=== PATIENT | male | born 1960 | race Caucasian/White ===

== ENCOUNTER 2021-03-03 18:52 | Inpatient (IN) | payer BC, SELFPAY ==
[2021-03-03] VITALS (9 sets, daily range): BP systolic 152–176; BP diastolic 74–116; PULSE 69–90; RESP 16–22; TEMP 37.1; O2SAT 97–98; BMI 35.4
--- NOTE | 2021-03-03 19:09 | XRR_ITS ---
PROCEDURE INFORMATION: Exam: XR Chest Exam date and time: 03/03/2021 7:09 PM Age: 60 years old Clinical indication: Pain; Chest pressure; Additional info: Cp TECHNIQUE: Imaging protocol: XR of the chest. Views: 1 view. COMPARISON: No relevant prior studies available. FINDINGS: Lungs: Unremarkable. No consolidation. Pleural spaces: Unremarkable. No pleural effusion. No pneumothorax. Heart/Mediastinum: Unremarkable. No cardiomegaly. Bones/joints: Unremarkable. XR/XR chest 1V portable [id number] IMPRESSION: No acute findings.
--- NOTE | 2021-03-03 19:09 | ECG_ITS ---
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 Measurements Intervals [place] Rate: 79 P: 37 DC: 144 QRS: -20 QRSD: 106 T: 85 QT: 359 QTc: 412 Interpretive Statements SINUS RHYTHM POSSIBLE RIGHT VENTRICULAR CONDUCTION DELAY [RSR (QR) IN V1/V2] ST elevation in the anterior leads, suggestive of recent anteroseptal infarction LEFT VENTRICULAR HYPERTROPHY AND ST-T CHANGE [VOLTAGE CRITERIA PLUS ST/T ABNORMALITY] No previous ECG available for comparison Electronically Signed On 03-04-2021 19:07:37 CDT by Austin Campbell M.D. [id number]
[2021-03-03 19:21] LABS: Basophils # 0.1 10^3/uL (0.0-0.1); Basophils % 0.5 %; Eosinophils # 0.2 10^3/uL (0.0-0.8); Eosinophils % 1.6 %; Hematocrit 46.2 % (42.0-52.0); Hemoglobin 15.3 g/dL (11.7-16.6); Lymphocytes # 1.4 10^3/uL (0.8-4.8); Lymphocytes % 11.7 %; Mean Corpuscular HGB Conc 33.1 g/dL (30.0-36.0); Mean Corpuscular Hemoglobin 29.1 pg (28.0-34.0); Mean Platelet Volume 9.8 fL (7.4-10.4); Monocytes # 1.2 10^3/uL (0.2-0.9); Monocytes % 9.8 %; Neutrophils # 9.29 10^3/uL (1.8-7.7); Nucleated Red Blood Cells % 0 %; Platelet Count 232 10^3/cmm (130-400); Red Blood Count 5.25 10^6/uL (4.1-5.3); White Blood Count 12.2 10^3/uL (4.0-10.0)
[2021-03-03 19:54] LABS: Alanine Aminotransferase 35 U/L (0-41); Albumin Level 4.5 g/dL (3.5-5.2); Alkaline Phosphatase 103 IU/L (40-130); Anion Gap 16.6 (5-19); Aspartate Amino Transferase 47 U/L (0-40); Blood Urea Nitrogen 11 mg/dL (8-23); Calcium 8.8 mg/dL (8.5-10.5); Carbon Dioxide 26 mmol/L (22-29); Chloride 101 mmol/L (98-107); Globulin 2.2 g/dL (1.3-4.6); Glomerular Filtration Rate 76.2 mL/min (90-130); Glucose 121 mg/dL (65-115); Lipase 44 U/L (13-60); NT Pro B Type Natriuretic Pept 815 pg/mL (0-125); Osmolality Calculated 291 mOsm/kg (285-295); Potassium 3.6 mmol/L (3.5-5.1); Sodium 140 mmol/L (136-145); Total Bilirubin 0.4 mg/dL (0.15-1.2); Total Protein 6.7 g/dL (6.6-8.7)
[2021-03-03 19:55] LABS: Troponin(5th) Baseline 803 ng/L (0-15)
--- NOTE | 2021-03-03 20:23 | PM.HP ---
Providers/Chief Complaint Chief Complaint: chest pain History of Present Illness Fly Ghotra is a 60 year old male known known past medical history other than hypertension, sleep apnea presented today with chief complaint of chest pain. 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 This pain was radiating towards his left arm which he is describing as numbness as well. He asked his son to take care of cattle and he went home to take some rest, all night his pain did not subside, he kept experiencing low intensity constant pain. Today in the morning he took care of his cattle despite that pain, today he was experiencing chest discomfort on deep breathing as well, and around 5 PM went to [facility], where EKG revealed significant changes, he was transferred to the ER via ambulance. In the ER STEMI alert was called, Dr. Choi was evaluating the patient when I went in to interview him. Patient is stating that his chest pain subsided after getting nitroglycerin by the EMS, he was hypertensive in the ER blood pressure 175/116 mmHg, troponin 803, EKG showing mild J-point elevation V2 V3, he will go for cardiac angiogram Review of Systems Const: Reports: fatigue; Denies: chills or body aches Eyes: Denies: change in vision ENMT: Denies: throat pain Card: Reports: chest pain and dyspnea on exertion Resp: Reports: dyspnea and pain on inspiration GI: Denies: abdominal pain : Denies: flank pain Musc: Denies: neck pain Skin/Breast: Denies: rash Neuro: Denies: headache(s) Psych: Reports: anxiety Endo: Denies: polyuria Guido/Lymph: Denies: easy bruising All/Imm: Denies: urticaria Medications/Allergies Allergies Allergy/AdvReac Type Severity Reaction Status Date / Time No Known Allergies Allergy Unverified 03/03/21 17:11 PFSH Acute PFSH: Medical History (Updated 03/03/21 @ 21:29 by Emir Burch MD) Hypertension Sleep apnea Surgical History (Updated 03/03/21 @ 21:29 by Emir Burch MD) H/O adenoidectomy Family History (Updated 03/03/21 @ 21:29 by Emir Burch MD) Denies family history of CAD (coronary artery disease) Family history of premature coronary artery disease Social History (Updated 03/03/21 @ 21:30 by Emir Burch MD) Smoking and tobacco status: current every day smoker smokeless tobacco Alcohol intake: current Alcohol intake frequency: holidays/special occasions only Substance/Drug Use: never Housing: House Vitals/I&O/Wt Last Vital Signs Temp 98.8 F 03/03/21 18:56 Pulse 90 03/03/21 19:09 Resp 22 H 03/03/21 19:09 BP 175/116 03/03/21 19:09 Pulse Ox 97 03/03/21 19:09 Weight last 48 hrs Weight 102.512 kg Physical Exam Narrative: EXAM NARRATIVE: Middle-age male, Morbidly obese Was sitting comfortably in his bed without active chest pain or shortness of breath Hypertension 170/95 mmHg Sun tanned S1, S2 no murmur appreciated no signs of heart failure Abdomen distended with obesity no acute tenderness Lower extremity no edema gangrene ulcer No sign of ischemia, gangrene or ulcer No joint swelling He is awake alert oriented x3 GCS 15 No active respiratory distress no audible wheezing or stridor EOMI, PERRLA Awake alert oriented x3 with appropriate mood and affect Data : 03/03/21 19:05 03/03/21 19:05 A&P Assessment and plan (1) STEMI (ST elevation myocardial infarction): Status: Acute (2) Hypertensive urgency: Status: Acute Additional A&P Information ST segment elevation [place] J-point elevation V2 V3, incomplete right bundle branch block Troponin 803, serial troponin and EKG STEMI alert called in the ER Patient is going for coronary angiogram Start dual antiplatelet therapy along high-dose statin lisinopril and Toprol Echo Check TSH, D-dimer For hypertension monitor on lisinopril and Toprol for now, might need hydrochlorothiazide at the time of discharge Appreciate cardiology recommendations DVT prophylaxis: Lovenox Cardiac diet after the procedure Full code Attestations Medical Necessity Statement*: Anticipating stay in the hospital cross more than 2 midnights, patient requires coronary angiogram for STEMI Time Spent in Patient Care: (>than 50% of time spent in counselling and/or direct pt care on unit). 40mins Coding Level of Care Code Acute Post Exchange Manager for Chg Fwd Diagnoses STEMI (ST elevation myocardial infarction) I21.3 Hypertensive urgency I16.0
[2021-03-03 21:01] LABS: Thyroid Stimulating Hormone 1.49 uIU/mL (0.27-4.20)
--- NOTE | 2021-03-03 21:07 | XACV_ITS ---
Ht: 173 cm Wt: 103 kg BSA: 2.26 m2 Gender: Male : 1960 Exam Priority: Routine Procedure(s): Procedure Description: Diagnostic procedure Procedure Description: Left Heart Catheterization Diagnostic Cath Status: Emergency Diagnostic Findings * Left Main has no disease. * Circumflex has no disease. * Mid Left Anterior Descending: total occlusion, EFREM: 0 flow. * Distal Right Coronary Artery: significant 80% stenosis, EFREM: 3 flow. * Coronary angiography shows right dominance. PCI Status: Emergency Interventional Findings * Mid Left Anterior Descendin% stenosis treated with a AB MINI TREK 1.50X6 RX BALLOON, AB MINI TREK 2.00X20 RX BALLOON, MDT R RAVEN 2.75X18 MIRIAM, and MDT MEGHA EUPHORA RX 3.23L53VN BALLOON. 0% residual stenosis, EFREM: 3 flow. * Distal Right Coronary Artery: 80% stenosis treated with a MDT R RAVEN 3.5X15 MIRIAM. 0% residual stenosis, EFREM: 3 flow. Conclusions 1. There is total occlusion coronary artery disease with two vessel disease. 2. Mid Left Anterior Descending was treated with a Balloon, Balloon, Drug Eluting Stent, and Balloon. 3. Distal Right Coronary Artery was treated with a Drug Eluting Stent. Recommendations * Continue current medical management and risk factor modification. Pressures Phase:Rest AO : 239 / 121 ( 118 ) @ 5:46:23 PM Clinical Evaluation EBL: 5mL-10mL Procedural Details Admit Source: Emergency department. Pre-Procedure Time Out. Identified patient by full name and date of as verbalized by the patient/guarantor. Does the consent match the physician's order: N/A Emergent. Accurate & Complete Informed Consent: N/A Emergent. Inpatient/Outpatient History & Physical on Chart: N/A Emergent. If H&P is completed, is and addenduem needed: N/A Emergent; If yes, is the addendum complete: N/A Emergent. Visualize and Verify Site with Patient/Guarantor: N/A. Relevant Radiology Images available: N/A Emergent. Pre-op teaching completed and patient verbalized understanding. The risks, benefits, and alternatives of sedation and/or procedure were discussed by physician. The patient agrees to continue. Physician arrived. Procedure started. IV Site on Arrival: 20 gauge in the left anticubital. Oxygen started at 2liters/min via nasal canula. right radial was prepped with chloroprep then draped in the usual sterile fashion. bilateral groins was prepped with chloroprep then draped in the usual sterile fashion. Physician notified. IV Site on Arrival: 18 gauge in the right anticubital. Baseline sample Acquired. HR: 79 BPM. Physician scrubbed in. Immediate Pre-Procedure Time Out. Correct Patient: N/A Emergent; Correct Procedure: N/A Emergent; Correct Site: N/A Emergent; Correct Patient Position: N/A Emergent; Correct Supplies: N/A Emergent; Dried Flammable Prep: N/A Emergent; Blood Products Available: N/A Emergent;. ER called and reported 2nd trop 1001 and 2nd delta was 198, informed center medical and lab director team of critical labs, no new orders at this time. Lidocaine 1% infiltrated to the right radial. Arterial access obtained. A 5 cypriot JR4 catheter in over wire. Inventory is Questetragar XT .014 190cm Str. Guidewire. JR4 removed. Catheter out. TR band placed on right wrist. Hemostasis obtained. Going to right groin. A TR Band was successful obtaining hemostatsis at the Right Radial artery insertion site. Lidocaine 1% infiltrated to the right groin. Arterial access obtained with micropuncture set. A 6 cypriot JR4 catheter in over wire. Catheter out. Inventory is CRD 6 FR XB 3.5 GUIDE. Multiple views taken of right coronary artery. [place] guidewire was advanced through the guide catheter to lesion in the diaganol. Inventory is TR 180cm Runthrough NS extra floppy 0.014 wire into LAD. House sup called to updated patient's daughter. Inflation number : 1 A AB MINI TREK 1.50X6 RX BALLOON was prepped and advanced across the Mid LAD , then inflated to 8 SULMA for 0:18 seconds. Balloon out. Balloon inserted to lesion in the mid LAD. Inflation number : 2 A AB MINI TREK 2.00X20 RX BALLOON was prepped and advanced across the Mid LAD , then inflated to 18 SULMA for 0:15 seconds. Balloon out. cougar wire removed from diag. Inflation Number : 3 A MDT R RAVEN 2.75X18 MIRIAM -Lot Number# [id number] Exp Date: 11/07/2022 was prepped and advanced across the Mid LAD. The stent was deployed at 14 SULMA for 0:16 seconds. Stent balloon removed. Inflation number : 4 A MDT NC EUPHORA RX 3.85V81LV BALLOON was prepped and advanced across the Mid LAD , then inflated to 14 SULMA for 0:14 seconds. Inflation number: 5 The MDT NC EUPHORA RX 3.92M63NP BALLOON was reinflated across the Mid LAD, to 14 SULMA for 0:13 seconds. Balloon out. Stent balloon and wire out. XB3.5 wire removed. Inventory is CRD 6FR JR 4 GUIDE 100cm. 6 cypriot JR 4 guide catheter was inserted over the wire. Drawing ACT. [place] guidewire was advanced through the guide catheter to lesion in the mid RCA. Inflation Number : 1 A MDT R RAVEN 3.5X15 MIRIAM -Lot Number# [id number] Exp Date: 09/19/2022 was prepped and advanced across the Mid RCA. The stent was deployed at 18 SULMA for 0:36 seconds. ACT 236. Stent balloon out over wire. Checking results. Stent balloon and wire out. Guide wire out. ACT drawn. Results 236 seconds. Therapeutic limits - pre-heparin administration 90-150 seconds and monitoring heparin during a vascular procedure >250 seconds. Sheath(s) sutured into position with 2-0 silk and sterile 4x4's and Op-site applied over the site. No oozing or signs and symptoms of hematoma noted. Arterial sheath flushed and connected to tranducer and pressure bag with heparinized saline. Post Procedure: Pulses reassessed and unchanged. Physician scrubbed out. A Suture was successful obtaining hemostatsis at the Right Femoral artery insertion site. PERRLA. Strong, equal hand urology nurse bilaterally. Medication's Wasted: Nitro = 49.8 mL. Medication's Wasted: Heparin = 1000 units. [facility] Clinical Fraility Score: 3: Managing Well. Assessment Rn Indications: ACS > 24 hours. Chest Pain Symptom Assessment: Typical Angina Symptoms. Cardiovascular Instability: Yes, consistent chest pain. Current diagnosis: STEMI. Total IV fluids: 89 mL. PCI Indication: STEMI. Post-op diagnosis: STEMI. Complications: N/A. Estimated blood loss: 5mL-10mL. Procedure completed. Patient transferred by bed to 1st floor. Vital chart was stopped. Access Site Site: Right Radial artery Sheath Size: 5 Fr Hemostasis Method: TR Band Hemostasis Success: Successful Site: Right Femoral artery Sheath Size: 6 Fr Hemostasis Method: Suture Hemostasis Success: Successful Procedure Medications Start: 9:29 PM Stop: 9:29 PM Medication: Versed Amount: 1 mg Route: I.V. Start: 9:29 PM Stop: 9:29 PM Medication: Fentanyl Amount: 50 mcg Route: I.V. Start: 9:34 PM Stop: 9:34 PM Medication: Versed Amount: 1 mg Route: I.V. Start: 9:34 PM Stop: 9:34 PM Medication: Fentanyl Amount: 50 mcg Route: I.V. Start: 9:45 PM Stop: 9:45 PM Medication: Versed Amount: 1 mg Route: I.V. Start: 9:45 PM Stop: 9:45 PM Medication: Fentanyl Amount: 50 mcg Route: I.V. Start: 9:56 PM Stop: 9:56 PM Medication: Heparin Amount: 6000 units Route: I.V. Start: 9:59 PM Stop: 9:59 PM Medication: Aggrastat 12.5 mg/250 mL Amount: 50 ml Route: I.V. bolus Start: 10:00 PM Stop: 10:00 PM Medication: Aggrastat 12.5 mg/250 mL Amount: 18.4 ml/hr Route: I.V. drip Start: 10:03 PM Stop: 10:03 PM Medication: Versed Amount: 1 mg Route: I.V. Start: 10:03 PM Stop: 10:03 PM Medication: Fentanyl Amount: 50 mcg Route: I.V. Start: 10:16 PM Stop: 10:16 PM Medication: Nitrogylcerin Amount: 200 mcg Route: I.C. Start: 10:32 PM Stop: 10:32 PM Medication: Heparin Amount: 2000 units Route: I.V. I, the attending physician, have reviewed and verified all procedure medications. Yes, all medications given per verbal order History/Risk Factors Hypertension: No Dyslipidemia: No Peripheral Arterial Disease (PAD): No Myocardial Infarction ([place]): No Obesity: No Renal Disease: No Prior Interventions PCI: No CABG: No Valve Surgery: No Report Signatures Finalized by Emir Cardenas MD on 03/18/2021 04:55 PM
--- NOTE | 2021-03-03 21:09 | ECG_ITS ---
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 Measurements Intervals [place] Rate: 91 P: 32 NE: 162 QRS: -25 QRSD: 98 T: 76 QT: 337 QTc: 417 Interpretive Statements SINUS RHYTHM BORDERLINE LEFT AXIS DEVIATION [QRS AXIS < -20] ST elevation, consistent with a recent anteroseptal myocardial infarction POSSIBLE RIGHT VENTRICULAR CONDUCTION DELAY [RSR (QR) IN V1/V2] MODERATE VOLTAGE CRITERIA FOR LVH, CONSIDER NORMAL VARIANT [MEETS CRITERIA IN ONE OF: R(aVL), S(V1), R(V5), R(V5/V6)+S(V1)] NONSPECIFIC ST & T-WAVE ABNORMALITY WARNING: DATA QUALITY MAY AFFECT INTERPRETATION INTERPRETATION BASED ON A DEFAULT AGE OF 40 YEARS No previous ECG available for comparison Electronically Signed On 03-04-2021 19:15:51 CDT by Austin Campbell M.D. [id number]
[2021-03-03 21:30] LABS: Troponin 5 2HR 1001 ng/L (0-15); Troponin 5 2HR Delta 198 ABS# (0-10)
[2021-03-03 22:02] LABS: Chol HDL Ratio 4.82 mg/dL (1.0-5.00); Cholesterol 188 mg/dL (0-200); HDL Cholesterol 39 mg/dL (60-100); LDL Cholesterol Calculated 115 mg/dL (50-129); LDL HDL Ratio 2.95 RATIO (0.00-3.22); Triglycerides 171 mg/dL (0-150)
[2021-03-03 22:03] LABS: Estmated Average Glucose 126
--- NOTE | 2021-03-03 23:07 | PC.NURSE ---
Patient received from slab depiler operator at 2255 s/p [facility] with PCIx2. Patient had aggrastat running at that time which was d/c'd now per Dr Cardenas. Patient TR band in place to right wrist and sheath sutured in place with pressure bag attached to right groin. No s/s of bleeding or hematoma formation observed to either site. Instructed patient on site care and restrictions, new medications to include Brilinta, metoprolol and statins. Patient and daughter both verbalized complete understanding. Daughter to bring patient's medications and cpap tomorrow morning. PTT ordered for 0048. Waiting for this result to removed sheath. Explained to patient the process of sheath removal. Patient verbalized understanding.
--- NOTE | 2021-03-03 23:31 | PC.NURSE ---
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 Dr Ronald iyer.
[2021-03-03] MEDS: metoprolol succinate ER (24 HR) 25 mg Tablet PO (23:36)
[2021-03-04] VITALS (34 sets, daily range): BP systolic 123–183; BP diastolic 64–109; PULSE 64–88; RESP 8–22; TEMP 36.6–36.8; O2SAT 93–98
--- NOTE | 2021-03-04 00:20 | W.ED.CHESTPA ---
HPI - Chest Pain General: Chief Complaint: Chest Pain Stated Complaint: chest pain Time Seen by Provider: 03/03/21 19:03 Source: patient and family (daughter) Mode of arrival: EMS Limitations: no limitations History of Present Illness: HPI narrative: Patient is a 60-year-old male with no prior cardiac history and who presents to the emergency department with chest pain that started yesterday. 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 Pain never completely went away. Now he says it is more of an ache and rates it about a 4 out of 10. Pain is substernal with no radiation at this time. No nausea or vomiting. No diaphoresis at this time. No dizziness. He was unwilling to come to the hospital but his daughter was able to convince him to come in for evaluation. He describes it as feeling like something is sitting on his chest. complaint: chest pain Onset (ago): day(s) (1) Timing of current episode: constant Prior episodes: No Onset: during exertion Pain location: substernal Pain radiation: none Quality: heaviness Relieving factors: nitroglycerin Exacerbating factors: exertion Associated symptoms: Deny abdominal pain, diaphoresis, dyspnea, fever(s), leg edema, nausea, palpitations, sense of impending doom, syncope or vomiting Review of Systems General: Reports: 10 or more systems reviewed and unremarkable except in HPI and below Const: Denies: fever(s) or diaphoresis Card: Denies: palpitations or syncope Resp: Denies: dyspnea GI: Denies: abdominal pain, nausea or vomiting PFS ED PFSH: Medical History (Updated 03/04/21 @ 11:49 by Jd Prajapati MD, [facility] [place]) Hypertension Sleep apnea Surgical History (Updated 03/03/21 @ 21:29 by Emir Burch MD) H/O adenoidectomy Family History (Updated 03/03/21 @ 21:29 by Emir Burch MD) Denies family history of CAD (coronary artery disease) Family history of premature coronary artery disease Social History (Updated 03/03/21 @ 21:30 by Emir Burch MD) Smoking and tobacco status: current every day smoker smokeless tobacco Alcohol intake: current Alcohol intake frequency: holidays/special occasions only Substance/Drug Use: never Housing: House Physical Exam Const: COMMON NORMALS: no acute distress, average body habitus, patient oriented x3, no limitations, healthy appearing, alert and well nourished HENMT: COMMON NORMALS: normocephalic, atraumatic and moist oral mucous membranes HEAD & SCALP: normocephalic and atraumatic Neck/C-Spine: COMMON NORMALS: no meningeal signs and no JVD Chest: COMMONS NORMALS: normal inspection of the chest and normal palpation of entire chest wall Resp: COMMON NORMALS: normal respiratory effort, No retractions, No use of accessory muscles, clear to auscultation bilaterally and percussion normal AUSCULTATION: clear to auscultation bilaterally PERCUSSION: percussion normal Cardio: COMMON NORMALS: no JVD, regular rate, regular rhythm, S1 normal heart sound present, S2 normal heart sound present, No gallops present (Cardio), No clicks present (Cardio), No murmurs present (Cardio), No rub (Cardio) and Peripheral pulses 2+ throughout RATE: regular rate RHYTHM: regular rhythm HEART SOUNDS: S1 normal heart sound present and S2 normal heart sound present PERIPHERAL PULSES: Peripheral pulses 2+ throughout GI: COMMON NORMALS: Normal to inspection, nondistended, normoactive bowel sounds present, Soft to palpation, non-tender, No hepatosplenomegaly present, no masses and no bruits PALPATION: Yes Soft to palpation and Yes No hepatosplenomegaly present Extremity: COMMON NORMALS: normal to inspection, full ROM, capillary refill normal, no calf tenderness and no pedal edema Neuro: COMMON NORMALS: patient oriented x3 SENSORIUM/ORIENTATION: Yes alert MENINGEAL SIGNS: Yes no meningeal signs Skin: COMMON NORMALS: no rashes or lesions noted, no wounds, turgor normal, no jaundice, no petechiae and no mottling GENERAL SKIN EXAM: no rashes or lesions noted and turgor normal Course Consultations: Consultation #1: Discussed the patient with Dr. Burch hospitalist and he kindly accepted the patient to his service. Time: 20:20 Consultation #2: Discussed the patient with Dr. Campbell and he advised that the patient be taken to the labor employment associate for an angiogram since he still has some pain. Time: 20:30 Vital Signs: Vital signs: Vital Signs Temperature 98.8 F 03/03/21 18:56 Pulse Rate 66 03/04/21 11:09 Respiratory Rate 14 03/04/21 11:09 Blood Pressure 126/64 03/04/21 06:15 Pulse Oximetry 94 03/04/21 11:09 MDM - Chest Pain MDM Narrative: Medical decision making narrative: 60 year old male who presents to the ED with complaints of chest pain that started yesterday. Pain has improved but never resolved and in the ED his EKG showed possible GRACIELA in V2 and with an initial troponin of 803, a decision was made to take the patient to the labor employment associate for a PCI. He remained stable in the ED. Medical Records: Attestation: I reviewed the patient's medical records. Lab Data: Attestation: I reviewed the patient's lab results. Labs: Lab Results 03/03/21 03/03/21 03/03/21 Range/Units 19:05 19:05 19:05 WBC 12.2 H (4.0-10.0) 10^3/ uL RBC 5.25 (4.1-5.3) 10^6/u L Hgb 15.3 (11.7-16.6) g/dL Hct 46.2 (42.0-52.0) % MCV 88.0 (80-94) fL MCH 29.1 (28.0-34.0) pg MCHC 33.1 (30.0-36.0) g/dL RDW 13.0 (12.1-15.1) % Plt Count 232 (130-400) 10^3/c mm MPV 9.8 (7.4-10.4) fL Neut % (Auto) 76.0 % Lymph % (Auto) 11.7 % Teller % (Auto) 9.8 % Eos % (Auto) 1.6 % Baso % (Auto) 0.5 % Neut # (Auto) 9.29 H (1.8-7.7) 10^3/u L Lymph # (Auto) 1.4 (0.8-4.8) 10^3/u L Teller # (Auto) 1.2 H (0.2-0.9) 10^3/u L Eos # (Auto) 0.2 (0.0-0.8) 10^3/u L Baso # (Auto) 0.1 (0.0-0.1) 10^3/u L Nucleated RBC % (a uto) 0 % Nucleated RBCs # 0.0 /100WBC PT 13.50 (12.1-14.9) SECO NDS INR 1.00 (0.8-1.2) D-Dimer (0-0.59) ug/mIFE U Sodium 140 (136-145) mmol/L Potassium 3.6 (3.5-5.1) mmol/L Chloride 101 (98-107) mmol/L Carbon Dioxide 26 (22-29) mmol/L Anion Gap 16.6 (5-19) BUN 11 (8-23) mg/dL Creatinine 1.0 (0.7-1.2) mg/dL GFR Calculation 76.2 L (90-130) mL/min Glucose 121 H (65-115) mg/dL Estimat Average Gl ucose Hemoglobin A1c (4.0-6.0) % Calculated Osmolal ity 291 (285-295) mOsm/k g Calcium 8.8 (8.5-10.5) mg/dL Total Bilirubin 0.4 (0.15-1.2) mg/dL AST 47 H (0-40) U/L ALT 35 (0-41) U/L Alkaline Phosphata se 103 (40-130) IU/L Troponin T Baselin e (0-15) ng/L Troponin T 120 Min [place] (0-15) ng/L Delta Troponin T (0-10) ABS# NT-Pro-B Natriuret Pep 815 H (0-125) pg/mL Total Protein 6.7 (6.6-8.7) g/dL Albumin 4.5 (3.5-5.2) g/dL Globulin 2.2 (1.3-4.6) g/dL Triglycerides (0-150) mg/dL Cholesterol (0-200) mg/dL LDL Cholesterol, C alc (50-129) mg/dL HDL Cholesterol (60-100) mg/dL LDL/HDL Ratio (0.00-3.22) RATI O Cholesterol/HDL Ra noel (1.0-5.00) mg/dL Lipase 44 (13-60) U/L TSH (0.27-4.20) uIU/ mL 0603/03/21 03/03/21 Range/Units 19:05 19:05 19:05 WBC (4.0-10.0) 10^3/ uL RBC (4.1-5.3) 10^6/u L Hgb (11.7-16.6) g/dL Hct (42.0-52.0) % MCV (80-94) fL MCH (28.0-34.0) pg MCHC (30.0-36.0) g/dL RDW (12.1-15.1) % Plt Count (130-400) 10^3/c mm MPV (7.4-10.4) fL Neut % (Auto) % Lymph % (Auto) % Teller % (Auto) % Eos % (Auto) % Baso % (Auto) % Neut # (Auto) (1.8-7.7) 10^3/u L Lymph # (Auto) (0.8-4.8) 10^3/u L Teller # (Auto) (0.2-0.9) 10^3/u L Eos # (Auto) (0.0-0.8) 10^3/u L Baso # (Auto) (0.0-0.1) 10^3/u L Nucleated RBC % (a uto) % Nucleated RBCs # /100WBC PT (12.1-14.9) SECO NDS INR (0.8-1.2) D-Dimer (0-0.59) ug/mIFE U Sodium (136-145) mmol/L Potassium (3.5-5.1) mmol/L Chloride (98-107) mmol/L Carbon Dioxide (22-29) mmol/L Anion Gap (5-19) BUN (8-23) mg/dL Creatinine (0.7-1.2) mg/dL GFR Calculation (90-130) mL/min Glucose (65-115) mg/dL Estimat Average Gl ucose 126 Hemoglobin A1c 6.0 (4.0-6.0) % Calculated Osmolal ity (285-295) mOsm/k g Calcium (8.5-10.5) mg/dL Total Bilirubin (0.15-1.2) mg/dL AST (0-40) U/L ALT (0-41) U/L Alkaline Phosphata se (40-130) IU/L Troponin T Baselin e 803 H* (0-15) ng/L Troponin T 120 Min [place] (0-15) ng/L Delta Troponin T (0-10) ABS# NT-Pro-B Natriuret Pep (0-125) pg/mL Total Protein (6.6-8.7) g/dL Albumin (3.5-5.2) g/dL Globulin (1.3-4.6) g/dL Triglycerides (0-150) mg/dL Cholesterol (0-200) mg/dL LDL Cholesterol, C alc (50-129) mg/dL HDL Cholesterol (60-100) mg/dL LDL/HDL Ratio (0.00-3.22) RATI O Cholesterol/HDL Ra noel (1.0-5.00) mg/dL Lipase (13-60) U/L TSH 1.49 (0.27-4.20) uIU/ mL 03/03/21 03/03/21 03/03/21 Range/Units 19:05 20:41 20:41 WBC (4.0-10.0) 10^3/ uL RBC (4.1-5.3) 10^6/u L Hgb (11.7-16.6) g/dL Hct (42.0-52.0) % MCV (80-94) fL MCH (28.0-34.0) pg MCHC (30.0-36.0) g/dL RDW (12.1-15.1) % Plt Count (130-400) 10^3/c mm MPV (7.4-10.4) fL Neut % (Auto) % Lymph % (Auto) % Teller % (Auto) % Eos % (Auto) % Baso % (Auto) % Neut # (Auto) (1.8-7.7) 10^3/u L Lymph # (Auto) (0.8-4.8) 10^3/u L Teller # (Auto) (0.2-0.9) 10^3/u L Eos # (Auto) (0.0-0.8) 10^3/u L Baso # (Auto) (0.0-0.1) 10^3/u L Nucleated RBC % (a uto) % Nucleated RBCs # /100WBC PT (12.1-14.9) SECO NDS INR (0.8-1.2) D-Dimer 0.50 (0-0.59) ug/mIFE U Sodium (136-145) mmol/L Potassium (3.5-5.1) mmol/L Chloride (98-107) mmol/L Carbon Dioxide (22-29) mmol/L Anion Gap (5-19) BUN (8-23) mg/dL Creatinine (0.7-1.2) mg/dL GFR Calculation (90-130) mL/min Glucose (65-115) mg/dL Estimat Average Gl ucose Hemoglobin A1c (4.0-6.0) % Calculated Osmolal ity (285-295) mOsm/k g Calcium (8.5-10.5) mg/dL Total Bilirubin (0.15-1.2) mg/dL AST (0-40) U/L ALT (0-41) U/L Alkaline Phosphata se (40-130) IU/L Troponin T Baselin e (0-15) ng/L Troponin T 120 Min [place] 1001 H (0-15) ng/L Delta Troponin T 198 H* (0-10) ABS# NT-Pro-B Natriuret Pep (0-125) pg/mL Total Protein (6.6-8.7) g/dL Albumin (3.5-5.2) g/dL Globulin (1.3-4.6) g/dL Triglycerides 171 H (0-150) mg/dL Cholesterol 188 (0-200) mg/dL LDL Cholesterol, C alc 115 (50-129) mg/dL HDL Cholesterol 39 L (60-100) mg/dL LDL/HDL Ratio 2.95 (0.00-3.22) RATI O Cholesterol/HDL Ra noel 4.82 (1.0-5.00) mg/dL Lipase (13-60) U/L TSH (0.27-4.20) uIU/ mL Imaging Data^: CXR: Attestation: I personally reviewed and interpreted this imaging study as follows: Radiologist's impression: [address] [id number] ReportSigned Patient: Dom Ghotra #: [id number]: 1960Acct#:[id number]/Sex: 60 / MADM Date: 03/03/21Loc: ERRoom/Bed:Attending Dr: Ordering Provider/Ordering MD: Jd Prajapati MD, [facility] [place] Date of Service: 03/03/21 Procedure(s): XR chest 1V portable [id number] Accession Number(s): [id number] Report Number: [id number] PROCEDURE INFORMATION: Exam: XR Chest Exam date and time: 03/03/2021 7:09 PM Age: 60 years old Clinical indication: Pain; Chest pressure; Additional info: Cp TECHNIQUE: Imaging protocol: XR of the chest. Views: 1 view. COMPARISON: No relevant prior studies available. FINDINGS: Lungs: Unremarkable. No consolidation. Pleural spaces: Unremarkable. No pleural effusion. No pneumothorax. Heart/Mediastinum: Unremarkable. No cardiomegaly. Bones/joints: Unremarkable. XR/XR chest 1V portable [id number] IMPRESSION: No acute findings. Dictated By:Farhad Cueva By:Farhad Cueva Date/Time:03/03/212028DD/ 27 EKG Data^: EKG 1: Attestation: I personally reviewed and interpreted this EKG as follows: EKG interpretation date: 03/04/21 Computer generated interpretation: [address] [id number] ReportDraft Patient: Dom Ghotra #: [id number]: 1960Acct#:[id number]/Sex: 60 / MADM Date: 03/03/21Loc: ERRoom/Bed:Attending Dr: Ordering Provider/Ordering MD: Jd Prajapati MD, [facility] [place] Date of Service: 03/03/21 Procedure(s): ECG 12 lead EKG Accession Number(s): [id number] Report Number: [id number] [facility] Test Date: 2021-03-03 Pat Name: Fly Ghotra Department: Room: Gender: Male 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: : 1960 Requested By: Jd Prajapati I Order Number: [id number] Reading MD: Measurements Intervals [place] Rate: 79 P: 37 LA: 144 QRS: -20 QRSD: 106 T: 85 QT: 359 QTc: 412 Interpretive Statements SINUS RHYTHM POSSIBLE RIGHT VENTRICULAR CONDUCTION DELAY [RSR (QR) IN V1/V2] LEFT VENTRICULAR HYPERTROPHY AND ST-T CHANGE [VOLTAGE CRITERIA PLUS ST/T ABNORMALITY] No previous ECG available for comparison [email or web address] Dictated By:INTERFACE,USERSigned By:Signed Date/Time:DD/ 30 Discharge Plan Discharge Patient Disposition: Admitted As Inpatient Admit Provider: Emir Burch Clinical Impression: STEMI (ST elevation myocardial infarction), Hypertensive urgency Condition: Stable Coding Level of Care Code ED Grounds Restoration Specialist for Garret Flowers
--- NOTE | 2021-03-04 01:04 | PC.NURSE ---
Cath access sites remain c,d,i with no s/s of bleeding observed.
--- NOTE | 2021-03-04 01:09 | ECG_ITS ---
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 Measurements Intervals [place] Rate: 73 P: 55 MD: 163 QRS: 12 QRSD: 107 T: 101 QT: 423 QTc: 469 Interpretive Statements SINUS RHYTHM POSSIBLE RIGHT VENTRICULAR CONDUCTION DELAY [RSR (QR) IN V1/V2] Neo- septal MYOCARDIAL INFARCTION [40+ ms Q WAVE AND/OR ST/T ABNORMALITY IN V3/V4], PROBABLY RECENT ACUTE [place] Compared to ECG 03/03/2021 20:31:34 Myocardial infarct finding now present Left ventricular hypertrophy no longer present ST (T wave) deviation no longer present Electronically Signed On 03-04-2021 19:23:39 CDT by Austin Campbell M.D. [id number]
[2021-03-04 02:26] LABS: Basophils % 0.3 %; Eosinophils # 0.2 10^3/uL (0.0-0.8); Eosinophils % 1.9 %; Hematocrit 45.8 % (42.0-52.0); Hemoglobin 14.8 g/dL (11.7-16.6); Lymphocytes # 1.5 10^3/uL (0.8-4.8); Lymphocytes % 14.9 %; Mean Corpuscular HGB Conc 32.3 g/dL (30.0-36.0); Mean Corpuscular Hemoglobin 28.8 pg (28.0-34.0); Mean Corpuscular Volume 89.1 fL (80-94); Mean Platelet Volume 10.3 fL (7.4-10.4); Monocytes # 1.1 10^3/uL (0.2-0.9); Monocytes % 11.1 %; Neutrophils # 7.03 10^3/uL (1.8-7.7); Neutrophils % 71.3 %; Nucleated Red Blood Cells % 0 %; Platelet Count 196 10^3/cmm (130-400); Red Blood Count 5.14 10^6/uL (4.1-5.3); White Blood Count 9.9 10^3/uL (4.0-10.0)
[2021-03-04 02:49] LABS: Blood Urea Nitrogen 9 mg/dL (8-23); Calcium 8.3 mg/dL (8.5-10.5); Carbon Dioxide 23 mmol/L (22-29); Chloride 101 mmol/L (98-107); Glomerular Filtration Rate 86.1 mL/min (90-130); Glucose 109 mg/dL (65-115); Osmolality Calculated 279 mOsm/kg (285-295); Partial Thromboplastin Time 51.6 SECONDS (23.9-36.7); Sodium 135 mmol/L (136-145)
[2021-03-04] MEDS: ALPRAZolam 0.25 mg Tablet PO (02:49)
[2021-03-04 02:56] LABS: Anion Gap 14.8 (5-19); Potassium 3.8 mmol/L (3.5-5.1)
[2021-03-04 03:00] LABS: Slide Review Slide Review Perform
--- NOTE | 2021-03-04 03:28 | PC.NURSE ---
Initiated sheath pull per protocol at 0300. Hemostasis achieved immediately. Maintained pressure for 20min to right femoral site. VS remained WNL during procedure. Covered site with 2x2 and bio-occlusive dressing. No s/s of bleeding or hematoma formation observed to groin site. Patient tolerated procedure well. Initiated TR band removal at this time removing 2ml of air to start. No s/s of bleeding or hematoma to right wrist observed.
--- NOTE | 2021-03-04 04:05 | PC.NURSE ---
Patient c/o about lying flat on his back. Becoming fidgety and uncomfortable. Repositioned patient to left side x2 assist for comfort taking care not to disturb groin site. Pillows placed for support. Dressing to right groin remains c,d,i with no s/s of bleeding or hematoma formation at this time. Patient resting with eyes closed. No distress observed at this time.
--- NOTE | 2021-03-04 04:53 | PC.NURSE ---
Patient resting comfortably on left side. Pillows placed. Right groin and right wrist dressings remain c,d,i with no s/s of bleeding or hematoma formation observed.
--- NOTE | 2021-03-04 05:44 | PC.NURSE ---
Assisted patient with urinal. Patient unable to empty bladder at this time. Repositioned patient for comfort. Dressing to right groin and right wrist both remain c,d,i with no s/s of bleeding or hematoma formation observed. Reinforced instruction regarding site care and restrictions. Patient verbalized understanding however will be monitored closely for bleeding. Patient turns frequently and due to discomfort in back has difficulty following direction. Patient is alert and oriented.
--- NOTE | 2021-03-04 06:11 | PC.NURSE ---
Patient continues to not follow directions regarding positioning to safeguard against possible bleeding or hematoma formation. Patient currently lying on his right side. No bleeding or hematoma formation to right groin at this time. Monitoring site closely for development of bleeding indicators. Right wrist remain c,d,i with no s/s of bleeding or hematoma formation.
[2021-03-04 09:13] LABS: Iron 43 ug/dL (59-158)
[2021-03-04] MEDS: aspirin 81 mg EC Tablet PO (09:26)
[2021-03-04] MEDS: atorvastatin 40 mg Tablet 80 MG PO (09:26)
[2021-03-04] MEDS: lisinopril 10 mg Tablet PO (09:26)
[2021-03-04] MEDS: ticagrelor 90 mg Tablet PO ×2 (09:27→17:34)
[2021-03-04] MEDS: carvedilol 3.125 mg Tablet PO ×2 (09:27→17:33)
[2021-03-04 09:52] LABS: Percent Saturation 16.4 % (20-50); Total Iron Binding Capacity 262 mcg/dl; Unsaturated Iron Binding 219 ug/dL (112-347)
--- NOTE | 2021-03-04 10:15 | PC.CHAP ---
Pastoral Care Encounter/Spiritual Assessment Type of Contact [] Declined non destructive evaluation manager visit [] Patient/Family/Request visit [] Outpatient visit [] Follow-up visit [] Physician referral [] Code/Alert [XX] Routine visit [XX] Staff referral [] Actively dying [] Patient sleeping [] Family support [] [] Out of room [] Palliative care [] [] Receiving care in room [] Pre-surgical visit [] Trauma [] Long length of stay [] ICU visit [] Other: Relational/Emotional Strength [XX] Patient feels connected with others/family/visitors/staff [] Distress [] Loneliness/isolation [] Abandonment Spirituality of Patient [] Person of Diana [] Attends Yazidi of their Diana [XX] Believes in Prayer [] Reads Bible or Taoist materials [] There are Spiritual issues to be addressed Ground Mixer Interventions [XX] Prayer [] Active listening [XX] Non-anxious presence [] Spiritual/emotional support [] Crisis/trauma care [] Spiritual counseling [] Bereavement support [] Provided bereavement packet [] Provided Bible/devotional materials [] Provided toy/stuffed animal, coloring book to patient or family member [] Provided Communion [] Anointing/[place] [] Salvation [XX] Completed spiritual assessment [] Other: Impact on Illness or Injury [] Angry [] Fearful [] Anxious [] Often cries [] Exhaustion [] Unable to work [] Unable to attend adventist [] Unable to walk/stand [] Unable to read [] Unable to drive [] Unable to eat/drink [] Unable to sleep [] Unable to be with family [] Patient intubated [] Other: Summary: Pt was not talkative. Nurse had suggested a non destructive evaluation manager visit to which pt agreed, but then he wasn't interested in conversing. Pt has family support and pt's eldest daughter was in the room at bedside. Pt states that he feels better already with the stents placed. He's ready to go home. Pt said that I could keep him in my prayers. Ground Mixer followed up asking if pt would like prayer now. Pt tried to frame it as non destructive evaluation manager's decision. When non destructive evaluation manager stated that it is pt decision, he removed his hat and held out his hand for prayer. Time spent with patient: 5 mins
--- NOTE | 2021-03-04 12:47 | P.PN_ITS ---
Subjective Subjective: Interval history: H&P and labs noted. No acute events overnight. Has remained stable. Currently on examination lying comfortably in bed. Chest pain-free. Denies shortness of breath or dizziness. Groin and radial access area looks healthy without hematoma. Patient is yet to get out of bed to walk around. Saturating well on room air. Vitals/I&O/Wt Last Vital Signs Temp 98.8 F 03/03/21 18:56 Pulse 66 03/04/21 11:09 Resp 14 03/04/21 11:09 BP 126/64 03/04/21 06:15 Pulse Ox 94 03/04/21 11:09 03/03/21 03/04/21 03/04/21 22:59 06:59 14:59 Intake Total 360 / 360 360 / 360 Output Total 1375 / 1375 Balance -1015 / -1015 360 / 360 Weight last 48 hrs Weight 102.512 kg Physical Exam Narrative: EXAM NARRATIVE: General: No acute distress, AO x3, obese, HEENT: PERRLA, pupils bilaterally equal and reactive Chest: Normal vesicular breath sounds, no added sounds, equal good air entry bilaterally CVS: S1-S2 regular, no murmurs, no tachycardia, no gallops, no rubs Abdomen: Soft, nontender, no organomegaly, bowel sounds present Neuro: No focal deficits, no facial deformity, AO x3, power 5/5 in all limbs Data : 03/04/21 01:34 03/04/21 01:34 A&P Assessment and plan (1) STEMI (ST elevation myocardial infarction): Status: Acute Qualifiers: Involved coronary artery: unspecified coronary artery Qualified Code(s): I21.3 - ST elevation (STEMI) myocardial infarction of unspecified site (2) Hypertension: Status: Acute Additional A&P Information CAD: ST elevation AK: Post PCI with 2 drug-eluting stents. Chest pain-free. Continue with aspirin, Brilinta, statin. Continue with Coreg 3.125 mg twice daily, lisinopril 10 mg daily. Echocardiogram. Check lipid panel, A1c. Check EKG. Ambulate. Oxygen supplementation keeping saturation over 92%. Bowel regimen. Appreciate cardiology recommendations. Hypertension: Goal blood pressure less than 140/90 mmHg. Medication as above. Full code. Cardiac diet. Lovenox for DVT prophylaxis. Attestations Medical Necessity Statement*: Requires further hospitalization for management of ST elevation AK Time Spent in Patient Care: Greater than 35 minutes (>than 50% of time spent in counselling and/or direct pt care on unit) . Coding Level of Care Code Acute Seed Sorter for Garret Fwd Diagnoses STEMI (ST elevation myocardial infarction) I21.3 Involved coronary artery: unspecified coronary artery Hypertension I10
--- NOTE | 2021-03-04 14:50 | PM.CONSULT ---
Providers/Reason For Consult Consulting Physician/Specialty*: Cardiology Reason for Consult*: Acute coronary syndrome/ST elevation OK Attending Physician: Tu Howard MD History of Present Illness History of Present Illness Sorin Ghotra is a 60 year old male presented to the ER with chest pain of more than 24-hour duration. Twelve-lead EKG was suggestive of possible old anterior wall myocardial infarction with minimal ST elevation in the anterior leads. Patient troponin was more than 800 on arrival. 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 Chest pain did not subside whole night but lowered in the intensity. In the morning he worked with cattle again which brought back chest pain therefore he decided to go to [facility] from where he was transferred to ER due to abnormal EKG. ST elevation pager was alerted. Patient chest pain was relieved before I arrived. Since he has mild ST elevation with possible completed infarct but because of the fact he continues to have off-and-on chest pain I am deciding to take him to the [facility]. Further plan will be advised as per progress of the patient Meds/Allergies Home Medications and Allergies Allergies Allergy/AdvReac Type Severity Reaction Status Date / Time No Known Allergies Allergy Unverified 03/03/21 17:11 Current Medications Current Medications Generic Name Dose Route Start Last Admin Trade Name Freq PRN Reason Stop Dose Admin Alprazolam 0.25 mg 03/03/21 22:48 03/04/21 02:49 Alprazolam 0.25 Mg Tablet PO 0.25 mg TID PRN Administration ANXIETY Aspirin 81 mg 03/04/21 09:00 03/04/21 09:26 Aspirin 81 Mg Ec Tablet PO 81 mg DAILY TESSY Administration Atorvastatin Calcium 80 mg 03/04/21 09:00 03/04/21 09:26 Atorvastatin 40 Mg Tablet PO 80 mg DAILY TESSY Administration Carvedilol 3.125 mg 03/04/21 09:00 03/04/21 09:27 Carvedilol 3.125 Mg Tablet PO 3.125 mg BID TESSY Administration Enoxaparin Sodium 40 mg 03/04/21 09:00 03/04/21 10:40 Enoxaparin 40 Mg/0.4 Ml Syringe SUBCUT Not Given DAILY [facility] Tirofiban/Sodium Chloride 12.5 mg in 250 mls @ 18.6 mls/hr 03/03/21 23:00 03/04/21 14:32 Aggrastat IV Not Given .[id number] [facility] Protocol Lisinopril 10 mg 03/04/21 09:00 03/04/21 09:26 Lisinopril 10 Mg Tablet PO 10 mg DAILY TESSY Administration Senna/Docusate Sodium 1 tab 03/04/21 09:00 03/04/21 09:27 Sennosides-Docusate Tablet PO Not Given DAILY TESSY Ticagrelor 90 mg 03/04/21 09:00 03/04/21 09:27 Ticagrelor 90 Mg Tablet PO 90 mg BID TESSY Administration PFSH Acute PFSH: Medical History (Updated 03/04/21 @ 12:48 by Tu Howard MD) Hypertension Sleep apnea Surgical History (Updated 03/03/21 @ 21:29 by Emir Burch MD) H/O adenoidectomy Family History (Updated 03/03/21 @ 21:29 by Emir Burch MD) Denies family history of CAD (coronary artery disease) Family history of premature coronary artery disease Social History (Updated 03/03/21 @ 21:30 by Emir Burch MD) Smoking and tobacco status: current every day smoker smokeless tobacco Alcohol intake: current Alcohol intake frequency: holidays/special occasions only Substance/Drug Use: never Housing: House Vitals/I&O/Wt Last Vital Signs Temp 98.2 F 03/04/21 14:27 Pulse 72 03/04/21 14:27 Resp 19 H 03/04/21 14:27 BP 144/82 03/04/21 14:27 Pulse Ox 98 03/04/21 14:27 03/03/21 03/04/21 03/04/21 22:59 06:59 14:59 Intake Total 360 / 360 720 / 720 Output Total 1375 / 1375 Balance -1015 / -1015 720 / 720 Weight last 48 hrs Weight 226 lb Physical Exam Narrative: EXAM NARRATIVE: GENERAL: Patient is alert, awake and oriented x3. Mild distress with soreness in the chest NECK: No jugular vein distension. HEENT: No cyanosis. No icterus. No pallor. HEART: Regular S1 and S2. No murmur, rub or gallop. LUNGS: Clear to auscultate bilaterally. ABDOMEN: Soft, nontender and non distended. Positive bowel sounds. No guarding, rebound or tenderness. CENTRAL NERVOUS SYSTEM: Grossly nonfocal. EXTREMITIES: Lower extremities without edema bilaterally. A&P Assessment and plan (1) STEMI (ST elevation myocardial infarction): Patient has delayed presentation of ST elevation however he continues to have off-and-on chest pain therefore I will take him to the [facility]. I will load him with Brilinta aspirin statin. He will be given heparin. Patient has been explained all risk benefit and alternative for the procedure by myself. He has been explained risk for urgent emergent bypass, major minor bleed, stroke, arrhythmia, , transfusion. He would like to proceed with it. Status: Acute Qualifiers: Involved coronary artery: unspecified coronary artery Qualified Code(s): I21.3 - ST elevation (STEMI) myocardial infarction of unspecified site (2) Hypertensive urgency: Will optimize medicine and give him nitro for now for blood pressure. Status: Acute Consult Attestations Medical Necessity Statement: I am expecting his stay to cross more than 2 midnights. Coding Level of Care Code New Pt Acute Radiologic Technologist for Garret Flowers Patient Type New History Detailed Exam Detailed Medical Decision Making High Complexity Diagnoses STEMI (ST elevation myocardial infarction) I21.3 Involved coronary artery: unspecified coronary artery Hypertensive urgency I16.0
--- NOTE | 2021-03-04 14:59 | PM.PN ---
Subjective Subjective: Interval history: No overnight event. Strip drug-eluting stent to mid LAD and distal RCA for 100% complete subacute chronic occlusion of the LAD and 80% stenosis of RCA. Most likely culprit was LAD. Blood pressure is stable now. Vitals/I&O/Wt Last Vital Signs Temp 98.2 F 03/04/21 14:27 Pulse 72 03/04/21 14:27 Resp 19 H 03/04/21 14:27 BP 144/82 03/04/21 14:27 Pulse Ox 98 03/04/21 14:27 03/03/21 03/04/21 03/04/21 22:59 06:59 14:59 Intake Total 360 / 360 720 / 720 Output Total 1375 / 1375 Balance -1015 / -1015 720 / 720 Weight last 48 hrs Weight 226 lb Physical Exam Narrative: EXAM NARRATIVE: GENERAL: Patient is alert, awake and oriented x3. Mild distress with soreness in the chest NECK: No jugular vein distension. HEENT: No cyanosis. No icterus. No pallor. HEART: Regular S1 and S2. No murmur, rub or gallop. LUNGS: Clear to auscultate bilaterally. ABDOMEN: Soft, nontender and non distended. Positive bowel sounds. No guarding, rebound or tenderness. CENTRAL NERVOUS SYSTEM: Grossly nonfocal. EXTREMITIES: Lower extremities without edema bilaterally. Data : 03/04/21 01:34 03/04/21 01:34 A&P Assessment and plan (1) STEMI (ST elevation myocardial infarction): Status post drug-eluting stent to mid for complete occlusion. Excellent angiographic result was achieved. Status post drug-eluting stent to distal RCA. Continue aspirin statin beta-karlie and Brilinta. Aspirin will be 81 mg with Brilinta. Echocardiogram to assess LV function. Status: Acute Qualifiers: Involved coronary artery: unspecified coronary artery Qualified Code(s): I21.3 - ST elevation (STEMI) myocardial infarction of unspecified site (2) Hypertensive urgency: Appear to be stable and under control. Add SHAUNA inhibitor. Status: Acute Attestations Medical Necessity Statement*: I am expecting his stay to cross more than 2 midnights patient require continuation hospitalization for above defined care. Coding Level of Care Code Established Pt Acute Inorganic Chemistry Professor for Garret Flowers Patient Type Established History Detailed Exam Detailed Medical Decision Making Moderate Complexity Diagnoses STEMI (ST elevation myocardial infarction) I21.3 Involved coronary artery: unspecified coronary artery Hypertensive urgency I16.0
--- NOTE | 2021-03-04 22:44 | USCV_ITS ---
Sorin Ghotra Age: 60 Gender: M : 1960 Exam Date: 03/04/2021 08:42 Ordering Phys: Emir Burch MD Technologist: Julita Baldwin [place] [facility] [place]: NSTEMI BP: 126 / 64 HR: 63 Rhythm: Sinus Technical Quality: Fair MEASUREMENTS (Male / Female) Normal Values 2D ECHO LV Diastolic Diameter PLAX 4.4 cm 4.2 - 5.9 / 3.9 - 5.3 cm LV Systolic Diameter PLAX 2.5 cm LV Chamber Size 4.3 cm IVS Diastolic Thickness 1.5 cm 0.6 - 1.0 / 0.6 - 0.9 cm IVS Systolic Thickness 2.0 cm LVPW Diastolic Thickness 1.4 cm 0.6 - 1.0 / 0.6 - 0.9 cm LVPW Systolic Thickness 2.2 cm RV Chamber Size 2.9 cm LVOT Diameter 1.7 cm LV Ejection Fraction 2D Teich 75.6 % LV Ejection Fraction MOD 2C 65.8 % LV Ejection Fraction 2C AL 68.2 % LA Diameter 4.1 cm LA Width 2.8 cm LA Height 6.1 cm RA Width 2.6 cm RA Height 5.7 cm Aorta at Sinotubular Diameter 2.4 cm M-MODE LV Diastolic Diameter MM 4.7 cm 4.2 - 5.9 / 3.9 - 5.3 cm LV Systolic Diameter MM 2.5 cm LV Ejection Fraction MM Teich 78.4 % IVS Diastolic Thickness MM 2.1 cm 0.6 - 1.0 / 0.6 - 0.9 cm IVS Systolic Thickness MM 2.2 cm LVPW Diastolic Thickness MM 1.4 cm 0.6 - 1.0 / 0.6 - 0.9 cm LVPW Systolic Thickness MM 2.4 cm RV Diastolic Diameter MM 0.9 cm Aortic Annulus Diameter 3.7 cm LA Ao Ratio MM 1.3 MV E Point Septal Separation 0.3 cm DOPPLER AV Peak Velocity 163.0 cm/s LVOT Peak Velocity 111.0 cm/s AV Area Cont Eq vti 1.7 cm squared AV Area Cont Eq pk 1.6 cm squared MV Area PHT 5.0 cm squared Mitral E to A Ratio 0.8 MV E' Velocity 39.5 cm/s Mitral E to MV E' Ratio 10.1 Mitral E to LV E' Lateral Ratio 8.7 Mitral E to LV E' Septal Ratio 11.9 TR Peak Velocity 230.0 cm/s TR Peak Gradient 21.2 mmHg TV Peak E Velocity 32.0 cm/s Right Atrial Pressure 3.0 mmHg Pulmonary Artery Systolic Pressu 24.2 mmHg PV Peak Velocity 91.0 cm/s RV Acceleration Time 0.1 s RV Ejection Time 0.3 s RV AcT/ET 0.4 FINDINGS Left Ventricle Normal left ventricular size and systolic function, EF 61 %. Mild hypokinesia of the apical septum Grade I/IV diastolic dysfunction (abnormal relaxation filling pattern), normal to mildly elevated filling pressures. Right Ventricle The right ventricle is normal in size and function. Right Atrium The right atrium is normal in size. Left Atrium Normal left atrial size. Mitral Valve Mild mitral annular calcification. Aortic Valve Thickened aortic valve. Tricuspid Valve No gross abnormalities noted Pulmonic Valve Pulmonic valve not well visualized. Pericardium Normal pericardium without effusion. Aorta Normal ascending aorta dimension. CONCLUSIONS Normal left ventricular size and systolic function, EF 61 %. Mild hypokinesia of the apical septum . Grade I/IV diastolic dysfunction (abnormal relaxation filling pattern), normal to mildly elevated filling pressures. Mild mitral annular calcification. Thickened aortic valve. There is no pericardial effusion. Technically difficult study because of the poor ultrasonic window. No previous study is available for comparison. Dr Austin Campbell MD [facility] (Electronically Signed) Final Date: 04 March 2021 13:28 S
[2021-03-04] MEDS: temazepam 15 mg Capsule PO (23:06)
[2021-03-05 03:22] VITALS: BP 113/67; PULSE 64; RESP 16; TEMP 36.6; O2SAT 95
[2021-03-05 04:02] LABS: Basophils % 0.5 %; Eosinophils # 0.2 10^3/uL (0.0-0.8); Eosinophils % 2.3 %; Hematocrit 40.1 % (42.0-52.0); Hemoglobin 12.9 g/dL (11.7-16.6); Lymphocytes # 1.7 10^3/uL (0.8-4.8); Lymphocytes % 20.3 %; Mean Corpuscular HGB Conc 32.2 g/dL (30.0-36.0); Mean Corpuscular Hemoglobin 28.7 pg (28.0-34.0); Mean Corpuscular Volume 89.1 fL (80-94); Mean Platelet Volume 9.3 fL (7.4-10.4); Monocytes # 1.1 10^3/uL (0.2-0.9); Monocytes % 13.1 %; Neutrophils # 5.12 10^3/uL (1.8-7.7); Neutrophils % 63.1 %; Nucleated Red Blood Cells % 0 %; Platelet Count 155 10^3/cmm (130-400); Red Cell Distribution Width 13.1 % (12.1-15.1); White Blood Count 8.1 10^3/uL (4.0-10.0)
[2021-03-05 04:25] LABS: Alanine Aminotransferase 23 U/L (0-41); Albumin Level 3.5 g/dL (3.5-5.2); Alkaline Phosphatase 80 IU/L (40-130); Anion Gap 13.5 (5-19); Aspartate Amino Transferase 19 U/L (0-40); Blood Urea Nitrogen 14 mg/dL (8-23); Calcium 8.2 mg/dL (8.5-10.5); Carbon Dioxide 27 mmol/L (22-29); Chloride 104 mmol/L (98-107); Globulin 2.3 g/dL (1.3-4.6); Glomerular Filtration Rate 61.8 mL/min (90-130); Glucose 108 mg/dL (65-115); Osmolality Calculated 293 mOsm/kg (285-295); Potassium 3.5 mmol/L (3.5-5.1); Sodium 141 mmol/L (136-145); Total Bilirubin 0.9 mg/dL (0.15-1.2); Total Protein 5.8 g/dL (6.6-8.7)
[2021-03-05 05:35] VITALS: PULSE 75
[2021-03-05] MEDS: sennosides-docusate Tablet 1 TAB PO (08:08)
[2021-03-05] MEDS: aspirin 81 mg EC Tablet PO (08:09)
[2021-03-05] MEDS: atorvastatin 40 mg Tablet 80 MG PO (08:09)
[2021-03-05] MEDS: lisinopril 10 mg Tablet PO (08:10)
[2021-03-05] MEDS: ticagrelor 90 mg Tablet PO (08:11)
[2021-03-05] MEDS: carvedilol 3.125 mg Tablet PO (08:12)
[2021-03-05 08:15] VITALS: BP 143/72; PULSE 80; RESP 12; TEMP 36.5; O2SAT 98
[2021-03-05] MEDS: enoxaparin 40 mg/0.4 mL Syringe SUBCUT (08:35)
--- NOTE | 2021-03-05 08:45 | PM.PN ---
Subjective Subjective: Interval history: No overnight event. Strip drug-eluting stent to mid LAD and distal RCA for 100% complete subacute chronic occlusion of the LAD and 80% stenosis of RCA. Most likely culprit was LAD. Blood pressure is stable now. Vitals/I&O/Wt Last Vital Signs Temp 97.7 F 03/05/21 08:15 Pulse 80 03/05/21 08:15 Resp 12 03/05/21 08:15 BP 143/72 03/05/21 08:15 Pulse Ox 98 03/05/21 08:15 03/04/21 03/05/21 03/05/21 22:59 06:59 14:59 Intake Total 480 / 1200 200 / 1400 Balance 480 / 1200 200 / 1400 Weight last 48 hrs Weight 226 lb Physical Exam Narrative: EXAM NARRATIVE: GENERAL: Patient is alert, awake and oriented x3. Mild distress with soreness in the chest NECK: No jugular vein distension. HEENT: No cyanosis. No icterus. No pallor. HEART: Regular S1 and S2. No murmur, rub or gallop. LUNGS: Clear to auscultate bilaterally. ABDOMEN: Soft, nontender and non distended. Positive bowel sounds. No guarding, rebound or tenderness. CENTRAL NERVOUS SYSTEM: Grossly nonfocal. EXTREMITIES: Lower extremities without edema bilaterally. Data : 03/05/21 03:56 03/05/21 03:56 A&P Assessment and plan (1) STEMI (ST elevation myocardial infarction): Patient has delayed presentation of ST elevation however he continues to have off-and-on chest pain therefore I will take him to the [facility]. I will load him with Brilinta aspirin statin. He will be given heparin. Patient has been explained all risk benefit and alternative for the procedure by myself. He has been explained risk for urgent emergent bypass, major minor bleed, stroke, arrhythmia, , transfusion. He would like to proceed with it. Status: Acute Qualifiers: Involved coronary artery: unspecified coronary artery Qualified Code(s): I21.3 - ST elevation (STEMI) myocardial infarction of unspecified site (2) Hypertensive urgency: Will optimize medicine and give him nitro for now for blood pressure. Status: Acute Attestations Medical Necessity Statement*: Patient can be discharged home Coding Level of Care Code Acute Astrochemist for [facility] Diagnoses STEMI (ST elevation myocardial infarction) I21.3 Involved coronary artery: unspecified coronary artery Hypertensive urgency I16.0
--- NOTE | 2021-03-05 08:53 | P.PN_ITS ---
Subjective Subjective: Interval history: No overnight event. Ejection fraction comes out to be normal. Patient is status post drug-eluting stent to mid LAD and distal RCA for acute coronary syndrome. Right groin looks good. Medications: Reviewed: Yes Vitals/I&O/Wt Last Vital Signs Temp 97.7 F 03/05/21 08:15 Pulse 80 03/05/21 08:15 Resp 12 03/05/21 08:15 BP 143/72 03/05/21 08:15 Pulse Ox 98 03/05/21 08:15 03/04/21 03/05/21 03/05/21 22:59 06:59 14:59 Intake Total 480 / 1200 200 / 1400 Balance 480 / 1200 200 / 1400 Weight last 48 hrs Weight 226 lb Physical Exam Narrative: EXAM NARRATIVE: GENERAL: Patient is alert, awake and oriented x3. Mild distress with soreness in the chest NECK: No jugular vein distension. HEENT: No cyanosis. No icterus. No pallor. HEART: Regular S1 and S2. No murmur, rub or gallop. LUNGS: Clear to auscultate bilaterally. ABDOMEN: Soft, nontender and non distended. Positive bowel sounds. No guarding, rebound or tenderness. CENTRAL NERVOUS SYSTEM: Grossly nonfocal. EXTREMITIES: Lower extremities without edema bilaterally. Data : 03/05/21 03:56 03/05/21 03:56 A&P Assessment and plan (1) STEMI (ST elevation myocardial infarction): Stable doing fine from a coronary disease perspective. Moving around without any difficulty. Continue aspirin statin beta-karlie and Brilinta. Follow-up with Claudia Corrales in 7 days follow-up with Dr. Cardenas in 6 to 8 weeks. Patient can return to work on 15 March without any restriction. Status: Acute Qualifiers: Involved coronary artery: unspecified coronary artery Qualified Code(s): I21.3 - ST elevation (STEMI) myocardial infarction of unspecified site (2) Hypertensive urgency: Improved. Continue to optimize medicine. Coreg has been increased to 6.25 mg twice a day. Status: Acute Attestations Medical Necessity Statement*: Patient can be discharged home today. Coding Level of Care Code Established Pt Acute Second Vp Hr Assessment for Garret Flowers Patient Type Established History Detailed Exam Detailed Medical Decision Making Moderate Complexity Diagnoses STEMI (ST elevation myocardial infarction) I21.3 Involved coronary artery: unspecified coronary artery Hypertensive urgency I16.0
--- NOTE | 2021-03-05 10:26 | P.DS_ITS ---
Discharge Providers Date of Admission: 03/03/21 22:45 Date of Discharge: March 05, 2021 Attending Provider at Admission: Emir Burch MD Attending Provider at Discharge: Antwon Florence MD Diagnoses at Discharge Discharge Diagnosis (1) STEMI (ST elevation myocardial infarction): Status: Resolved Qualifiers: Involved coronary artery: unspecified coronary artery Qualified Code(s): I21.3 - ST elevation (STEMI) myocardial infarction of unspecified site (2) Hypertensive urgency: Status: Resolved Reason for Visit Reason for Visit: chest pain Hospital Course Hospital Course 60 year old male known known past medical history other than hypertension, sleep apnea presented today with chief complaint of chest pain. Upon arrival in the ER STEMI was called in EKG showing mild J-point elevation V2 V3, troponin trend during admission showed significant delta, in line with acute myocardial insult. 2D echo: Normal left ventricular size and systolic function, EF 61 %. Mild hypokinesia of the apical septum . Grade I/IV diastolic dysfunction (abnormal relaxation filling pattern), normal to mildly elevated filling pressures. Mild mitral annular calcification.Thickened aortic valve. Patient underwent cardiac cath s/p drug-eluting stent to mid LAD and distal RCA.Post cath patient remained chest pain-free. He was discharged on aspirin Brilinta , statin, beta-karlie, SHAUNA inhibitor. He will continue to follow Dr. Cardenas as an outpatient. Patient responded well to the above medical management and was discharged in stable condition to home. Physical Exam Const: COMMON NORMALS: patient oriented x3 HENMT: COMMON NORMALS: normocephalic and atraumatic HEAD & SCALP: normocephalic and atraumatic Chest: COMMONS NORMALS: normal inspection of the chest and normal palpation of entire chest wall CHEST: Yes Symmetrical chest wall rise Resp: COMMON NORMALS: normal respiratory effort and clear to auscultation bilaterally EFFORT & INSPECTION: Yes symmetric chest movement AUSCULTATION: clear to auscultation bilaterally Cardio: COMMON NORMALS: regular rate, regular rhythm, S1 normal heart sound present, S2 normal heart sound present, No gallops present (Cardio), No murmurs present (Cardio), No rub (Cardio) and Peripheral pulses 2+ throughout RATE: regular rate RHYTHM: regular rhythm HEART SOUNDS: S1 normal heart sound present and S2 normal heart sound present PERIPHERAL PULSES: Peripheral pulses 2+ throughout GI: COMMON NORMALS: Soft to palpation, non-tender and no masses AUSCULTATION: Yes normoactive bowel sounds PALPATION: Yes Soft to palpation RECTAL EXAM: Yes deferred Extremity: COMMON NORMALS: no clubbing, cyanosis or edema and no pedal edema Neuro: COMMON NORMALS: patient oriented x3 Discharge Data Data Completed and Pending: Completed Studies During Hospitalization Category Date Time Status XR chest 1V wendy ble [id number] Stat Exams 03/03/21 19:09 Completed CV echo complete* [id number] Routine Ultrasound 03/04/21 22:44 Completed Pending at discharge Category Date Time Status CONTENT WRITER request for service Stat Exams 03/03/21 21:07 Taken Urinalysis and Mi croscopic Routine Lab 03/04/21 08:42 Uncollected Labs from last 24 hours 03/05/21 03/05/21 03:56 03:56 WBC 8.1 RBC 4.50 Hgb 12.9 Hct 40.1 L MCV 89.1 MCH 28.7 MCHC 32.2 RDW 13.1 Plt Count 155 MPV 9.3 Neut % (Auto) 63.1 Lymph % (Auto) 20.3 [place] % (Auto) 13.1 Eos % (Auto) 2.3 Baso % (Auto) 0.5 Neut # (Auto) 5.12 Lymph # (Auto) 1.7 [place] # (Auto) 1.1 H Eos # (Auto) 0.2 Baso # (Auto) 0.0 Nucleated RBC % (a uto) 0 Nucleated RBCs # 0.0 Sodium 141 Potassium 3.5 Chloride 104 Carbon Dioxide 27 Anion Gap 13.5 BUN 14 Creatinine 1.2 GFR Calculation 61.8 L Glucose 108 Calculated Osmolal ity 293 Calcium 8.2 L Total Bilirubin 0.9 AST 19 ALT 23 Alkaline Phosphata se 80 Total Protein 5.8 L Albumin 3.5 Globulin 2.3 Vitals: Last Vital Signs Temp 97.7 F 03/05/21 08:15 Pulse 80 03/05/21 08:15 Resp 12 03/05/21 08:15 BP 143/72 03/05/21 08:15 Pulse Ox 98 03/05/21 08:15 Discharge Plan Discharge Patient Disposition: Home Condition: Stable Prescriptions: New atorvastatin 40 mg Tablet 80 mg PO DAILY Qty: 90 RF: 3 aspirin 81 mg Tablet,Delayed Release (Dr/Ec) 81 mg PO DAILY Qty: 90 RF: 3 carvedilol 3.125 mg Tablet 6.25 mg PO BID Qty: 60 RF: 3 lisinopril 10 mg Tablet 10 mg PO DAILY Qty: 30 RF: 3 Brilinta 90 mg Tablet 90 mg PO BID Qty: 60 RF: 3 nitroglycerin 0.4 mg Tablet, Sublingual 0.4 mg sublingual Q5M PRN (Reason: Chest Pain) 30 Days Qty: 30 RF: 0 No Action aspirin 325 mg tablet 325 mg PO ONCE Qty: 1 RF: 0 Discharge Orders: Discharge Order (Routine); Ordered 03/05/21 Ordered By: Emir Cardenas Referrals: Emir Cardenas MD [Physician] - 6 Weeks (Please follow-up follow-up with Dr. Cardenas on April 20 at 10;15A.M. If you have any questions or need to reschedule. Please call ) Claudia Corrales FNP [Nurse Practitioner] - 1 week (Please follow-up with Claudia Corrales on March 09 at 10:30A.M. If you have any questions or need to reschedule. Please call ) Discharge Diet: Cardiac Discharge Activity: Increase activity as tolerated Patient Instructions: Lisinopril (By mouth), Atorvastatin (By mouth), Carvedilol (By mouth), Ticagrelor (By mouth), Myocardial Infarction (DC), Coronary Angioplasty (DC), Post Angiogram Home Care Instructions Activity Restrictions/Additional Instructions: Follow-up with Claudai Corrales cardiology nurse practitioner in 7 days. Follow-up with Dr. Cardenas in 6 to 8 weeks. Discharge Attestations Time Spent in Discharge Care*: less than 30 min Specific Discharge Activities: educating patient, educating and/or supporting family/caregiver, discussing with pcp/other providers, discussing with family independence case manager/social workers/dc planners, documenting/other paperwork and evaluating patient/reviewing data Status at Discharge: Cognitive status at discharge: cognitively intact , Behavioral status at discharge: cooperative , Functional status at discharge: independent ambulation Overall status at discharge: patient is back to baseline Quality Metrics Clinical Quality Measures During this hospital stay, did patient experience: AMI Clinical Trial Participant: No Contraindication to aspirin (AMI): Aspirin given Contraindication to statin: Statin prescribed Coding Level of Care Code Acute Chg FW DC note Exam Comprehensive Diagnoses STEMI (ST elevation myocardial infarction) I21.3 Involved coronary artery: unspecified coronary artery Hypertensive urgency I16.0
--- NOTE | 2021-03-05 10:28 | PC.NURSE ---
Discharge instructions given per the physician's orders. Patient verbalized understanding of teaching and did not have any further questions. IV has been removed. Patient dressed self. No further needs identified at this time. Patient to be driven home by family member in private vehicle.
[2021-03-05 11:17] VITALS: BP 143/72
--- NOTE | 2021-03-05 15:32 | PC.RESP ---
SMOKING CESSATION INFORMATION SENT TO PATIENT.
== END 2021-03-05 11:18 | disposition home or self-care (01) | DRG 247 ==
LOC: ER 22:14 → CSU 22:53
PROVIDERS: Internal Medicine Cardiovascular Disease; Student in an Organized Health Care Education/Training Program; Admitting Provider Internal Medicine; Emergency Provider Family Medicine; Visit Provider Internal Medicine
DX: I21.02 ST elevation (STEMI) myocardial infarction involving left anterior descending coronary artery (principal); I10 Essential (primary) hypertension; G47.30 Sleep apnea, unspecified; F17.220 Nicotine dependence, chewing tobacco, uncomplicated; I16.0 Hypertensive urgency; I25.10 Atherosclerotic heart disease of native coronary artery without angina pectoris
CPT/HCPCS: 36415; 71045; 80048; 80053; 80061; 83036; 83540; 83550; 83690; 83735; 83880; 84443; 84484; 85025; 85347; 85378; 85610; 85730; 93005; 93306; 93454; 96372; 96374; 99285; C1725; C1769; C1874; C1887; C1894; C9600; C9601; J1644; J1650; J2250; J3010; J3246; J3490; J7030; Q9967

== ENCOUNTER → 2021-03-09 11:15 | Outpatient (BNVA) | payer BC, SELFPAY | PROVIDERS: Visit Provider Nurse Practitioner Family | DX: I25.10 Atherosclerotic heart disease of native coronary artery without angina pectoris (principal); I21.3 ST elevation (STEMI) myocardial infarction of unspecified site; Z95.5 Presence of coronary angioplasty implant and graft | CPT/HCPCS: 80048 ==